=== PATIENT | female | born 1970 | race African-American/Black ===

== ENCOUNTER 2024-05-16 14:45 | Emergency (ER) | payer OTHER, SELFPAY ==
[2024-05-16 14:50] VITALS: BP 112/73
[2024-05-16 15:19] LABS: % Basophils 0.6 % (0-2); % Eosinophils 1.1 % (0-6); % Immature Granulocytes 0.2 % (0-0.5); % Lymphocytes 37.4 % (20.5-51.1); % Monocytes 8.1 % (1.7-9.3); % Neutrophils 52.6 % (42.2-75.2); Absolute Eosinophils 0.1 10^3/uL (0-0.7); Absolute Lymphocytes 1.8 10^3/uL (1.2-3.4); Absolute Monocytes 0.4 10^3/uL (0.1-0.6); Absolute Neutrophils 2.5 10^3/uL (1.4-6.5); Hematocrit 33.8 % (37.0-47.0); Hemoglobin 11.4 g/dL (12.0-16.0); Mean Corp Hgb Conc. 33.7 g/dL (33.0-37.0); Mean Corpuscular Hgb 28.4 pg (27.0-31.0); Mean Corpuscular Volume 84.1 fL (81.0-99.0); Mean Platelet Volume 9.7 fL (7.4-10.4); Nucleated Red Blood Cells % 0 %; Platelet Count 253 10^3/uL (130-400); Red Blood Cell Count 4.02 10^6/uL (4.20-5.40); Red Cell Dist. Width 13.8 % (11.5-14.5); White Blood Cell Count 4.7 10^3/uL (4.8-10.8)
[2024-05-16 15:31] LABS: INR 1.11; PT 14.1 Sec (11.4-14.6)
[2024-05-16 15:40] LABS: ALT (SGPT) 26 U/L (0-35); AST (SGOT) 30 U/L (14-36); Albumin 4.5 g/dl (3.5-5.0); Alkaline Phosphatase 71 U/L (38-126); Blood Urea Nitrogen 14 mg/dl (7-17); Calcium 9.2 mg/dl (8.4-10.2); Carbon Dioxide 20 mmol/L (22-30); Chloride 106 mmol/L (98-107); Glucose 92 mg/dl (70-99); Potassium 3.7 mmol/L (3.5-5.1); Sodium 141 mmol/L (135-145); Total Bilirubin 0.2 mg/dl (0.2-1.3); Total Protein 6.9 g/dl (6.3-8.2); eGFR > 60.00
[2024-05-16 16:56] VITALS: BP 118/67
[2024-05-16 17:00] VITALS: BP 106/68
[2024-05-16 18:00] VITALS: BP 115/76
--- NOTE | 2024-05-16 18:51 | ED.GENMED ---
History of Present Illness
General
Chief Complaint: Fatigue
Time Seen by Provider: 05/16/24 18:51
History of Present Illness
History of Present Illness:
TIME OF INITIAL ENCOUNTER: 6:55 PM
HPI: Patient states that her hemoglobin had been around 12 and then dropped to 10 as an outpatient. This is associated with vaginal bleeding and some blood in the stool. She reportedly was told to have a blood transfusion by her primary care
doctor. She has had a colonoscopy a few years ago and is due for another one coming up shortly as she does have a family history of colon cancer. She had a life-threatening episode of vaginal bleeding in 2019 when her hemoglobin is 3.4 and it was
suggested that she should have a hysterectomy however due to 'islam reasons' she did not.
EXAM:
GENERAL: Well appearing in no distress
HEENT: Moist oral mucosa
CARDIOVASCULAR: No murmurs, normal heart rate, regular rhythm, No chest wall tenderness
PULMONARY: No respiratory distress, breath sounds are clear and equal
ABDOMEN: Soft with no peritoneal signs, no tenderness, empty rectal vault, no gross blood, what was tested was heme-negative
NEUROLOGIC: Excellent strength all extremities, no coordination deficits
PSYCHIATRIC: Appropriate mental status, normal insight and judgement
EXTREMITIES: Nontender, no edema, moves all extremities equally
SKIN: No rash, no lesions
NUMBER AND COMPLEXITY OF PROBLEMS ADDRESSED AT THE ENCOUNTER
� Chronic conditions affecting care: COPD, diabetes, iron deficiency anemia, anxiety/depression
� Acute Exacerbation and/or Progression of Chronic Illness: This is an acute problem
� Differential Diagnosis includes: Iron deficiency anemia, mild anemia from vaginal or GI bleeding
AMOUNT AND/OR COMPLEXITY OF DATA TO BE REVIEWED AND ANALYZED
� I performed an independent evaluation of and my interpretation is:
EKG:
CT:
X-rays:
Laboratory Studies: White count 4.7, hemoglobin 11.4, platelets normal, chemistries unremarkable except bicarb of 20, O+ blood type
Other:
� Review of other/old records: In 2019 she had a hemoglobin of 3.4
� Clinical information was obtained by an independent historian: None needed
� Prescriptions/Medications Considered but not given:
� Further testing considered but not performed:
RISK OF COMPLICATIONS AND/OR MORBIDITY OR MORTALITY OF PATIENT MANAGEMENT
� Social determinants of health affecting care: Lives at home
� Discussion with other providers:
� Escalation of care including admission/observation vs risk of discharge considered: Blood work was obtained before the start of my shift. The patient has very little evaluation vital signs and hemoglobin are stable. Recommend
continued outpatient management she is encouraged to return here if worse. She denies being on any antiplatelets or anticoagulation states she only takes amlodipine.
ANY OTHER UPDATES:
Past History
Past History
ED Past Medical History: None and Other (Fibroids)
ED Past Surgical History: Other (Fibroid removal)
Social History
Tobacco: Non-smoker
Alcohol: None
Phy Exam
Physical Exam
Physical Exam:
See HPI
Course
Orders/Labs/Results
Orders:
Orders
05/16/24 15:11
Type+Screen Urgent
Complete Blood Count/With Diff Urgent
Comprehensive Metabolic Panel Urgent
Prothrombin Time Urgent
Abnormal Lab Results
05/16/24
15:11
WBC 4.7 L 10^3/uL
(4.8-10.8)
RBC 4.02 L 10^6/uL
(4.20-5.40)
Hgb 11.4 L g/dL
(12.0-16.0)
Hct 33.8 L %
(37.0-47.0)
Carbon Dioxide 20 L mmol/L
(22-30)
05/16/24 15:11
05/16/24 15:11
Vital Signs
Initial and Last Documented VS:
Initial Vital Signs
Temp Pulse Resp BP Pulse Ox
99.5 F 73 16 112/73 98
05/16/24 14:50 05/16/24 14:50 05/16/24 14:50 05/16/24 14:50 05/16/24 14:50
Last Documented Vital Signs
Temp Pulse Resp BP Pulse Ox
99.5 F 55 20 115/76 98
05/16/24 14:50 05/16/24 18:45 05/16/24 18:45 05/16/24 18:00 05/16/24 18:45
*Critical Care Note
Total Time (30-74mins, 75-104mins- exclusive of procedures): Not Applicable
ED Attending Note
-
Portions of this chart may have been created with voice recognition software.� Occasional wrong word or��sound alike� substitutions may have occurred due to the inherent limitations of voice recognition software.
Discharge Plan
Departure
Patient Disposition: Home (Routine Discharge)
Date of Disposition: 05/16/24
Time of Disposition: 19:03
Patient with high blood pressure during this ER visit?: Yes
Discharge Problem:
Anemia
Prescriptions:
No Action
Collagenase
1 tab PO DAILY
Ibuprofen
1 tab PO PRN PRN (Reason: pain)
Iron
1 tab PO DAILY
Vitamin B-12
1 tab PO DAILY
Vitamin C
1 tab PO DAILY
cyclobenzaprine 10 MG tablet
10 mg PO HSPRN PRN (Reason: muscle tightness/spasm) Qty: 7 0RF
methylprednisolone [Medrol (Rahat)] 4 MG tablets,dose pack
4 tab PO . DIRECT Qty: 1 0RF
Referrals:
Jerry Hayden MD [Family Provider] -
Activity Restrictions/Additional Instructions:
Your hemoglobin today is 11.4. This appears to be stable based on your reported recent readings. Other blood work is unremarkable. The stool test shows no sign of microscopic blood. I do recommend that you follow-up with Dr. Cottrell and have
your ultrasound and colonoscopy as outpatient. Return here if worse or other concerns.
Interventions
Interventions:
*Risk Screen - Suicide Last Done: 05/16/24 14:50
*General Assessment Last Done: 05/16/24 14:50
*Neglect/Abuse Screening Last Done: 05/16/24 14:50
ED- Fall Risk Assessment Last Done: 05/16/24 16:49
*ED COVID-19 Vaccine History Last Done: 05/16/24 16:49
*Nursing Disposition Last Done: 05/16/24 19:08
Discharge Date and Time
Print Language: CHILEAN
[2024-05-16 19:00] VITALS: BP 108/73
== END 2024-05-16 19:10 | disposition home or self-care (01) ==
LOC: EMR 14:45
PROVIDERS: Student in an Organized Health Care Education/Training Program; EMERGENCY PHYSICIAN Emergency Medicine; FAMILY PHYSICIAN Family Medicine
DX: D64.9 Anemia, unspecified (principal); R03.0 Elevated blood-pressure reading, without diagnosis of hypertension
CPT/HCPCS: 99283; 80053; 85025; 85610; 86850; 86900; 86901

== ENCOUNTER → 2024-05-22 13:28 | Outpatient (REF) | payer OTHER, SELFPAY | LOC: WDC 13:28 | PROVIDERS: ATTENDING PHYSICIAN Obstetrics & Gynecology; FAMILY PHYSICIAN Family Medicine | DX: Z12.31 Encounter for screening mammogram for malignant neoplasm of breast (principal) | CPT/HCPCS: 77063; 77067 ==

== ENCOUNTER → 2024-06-09 16:20 | Outpatient (REF) | payer OTHER, SELFPAY | LOC: RAD 16:20 | PROVIDERS: ATTENDING PHYSICIAN Obstetrics & Gynecology; FAMILY PHYSICIAN Family Medicine | DX: D25.9 Leiomyoma of uterus, unspecified (principal) | CPT/HCPCS: 76830; 76856 ==

== ENCOUNTER 2024-09-06 06:37 | Day surgery (SDC) | payer OTHER, SELFPAY ==
[2024-09-06 11:56] VITALS: BMI 25.8
[2024-09-06 11:57] VITALS: BMI 25.8
[2024-09-06 12:00] VITALS: BP 128/80
[2024-09-06] MEDS: NEURONTIN 300 MG PO (12:01)
[2024-09-06] MEDS: TYLENOL 1000 MG PO (12:01)
[2024-09-06] MEDS: NORMOSOL-R/PLASMALYTE-A 1000 IV (12:02)
[2024-09-06 13:00] VITALS: BP 128/80; BP 99/68
--- NOTE | 2024-09-06 13:04 | W.IMMPOSTOP ---
Surgical Immed Post Op Note
-
Primary Surgeon: Jerri Cottrell DO
Assisting Surgeon: n/a
Pre-op Diagnosis: Abnormal uterine bleeding; fibroid uterus
Post-op Diagnosis: same, submucosal fibroids
Procedure Performed: hysteroscopy D&C
Anesthesia Type: MAC IV sedation
Specimen / Cultures: 1. endocervical curettings 2. endometrial curettings
Estimated Blood Loss: 5ml
Complications: none
Operative Findings: Uterus enlarged with fibroids, approx 12 wk size. Uterus with irregular contour including right sided mass/fibroid palpated, approximately 5-6cm in size.
Hysteroscopic findings: Submucosal fibroids noted (2), one is filling large portion of endometrial cavity. Bilateral tubal ostia seen.
Fluid deficit: 190ml
Counts correct times 2.
Stable to recovery.
[2024-09-06 13:15] VITALS: BP 115/78
[2024-09-06 13:25] VITALS: BP 116/80
[2024-09-06 13:40] VITALS: BP 134/95
[2024-09-06 13:55] VITALS: BP 156/93
[2024-09-06] MEDS: MOTRIN 600 MG PO (15:01)
== END 2024-09-06 15:03 | disposition home or self-care (01) ==
LOC: SDS 06:37
PROVIDERS: ATTENDING PHYSICIAN Obstetrics & Gynecology; FAMILY PHYSICIAN Family Medicine
DX: D25.2 Subserosal leiomyoma of uterus (principal); N93.9 Abnormal uterine and vaginal bleeding, unspecified
CPT/HCPCS: 58558; 88305; 36415; 80048; 84702; 85025; 86850; 86900; 86901

== ENCOUNTER 2024-09-29 06:10 | Day surgery (SDC) | payer OTHER, SELFPAY ==
[2024-09-04 13:53] VITALS: BMI 22.4
[2024-09-04 14:01] LABS: % Basophils 0.7 % (0-2); % Eosinophils 0.5 % (0-6); % Immature Granulocytes 0.5 % (0-0.5); % Lymphocytes 33.2 % (20.5-51.1); % Monocytes 8.4 % (1.7-9.3); % Neutrophils 56.7 % (42.2-75.2); Absolute Lymphocytes 1.5 10^3/uL (1.2-3.4); Absolute Monocytes 0.4 10^3/uL (0.1-0.6); Absolute Neutrophils 2.5 10^3/uL (1.4-6.5); Hematocrit 38.4 % (37.0-47.0); Hemoglobin 12.3 g/dL (12.0-16.0); Mean Corpuscular Hgb 28.3 pg (27.0-31.0); Mean Corpuscular Volume 88.3 fL (81.0-99.0); Mean Platelet Volume 9.9 fL (7.4-10.4); Nucleated Red Blood Cells % 0 %; Platelet Count 245 10^3/uL (130-400); Red Blood Cell Count 4.35 10^6/uL (4.20-5.40); White Blood Cell Count 4.4 10^3/uL (4.8-10.8)
[2024-09-04 14:54] LABS: Blood Urea Nitrogen 11 mg/dl (7-17); Calcium 9.7 mg/dl (8.4-10.2); Carbon Dioxide 24 mmol/L (22-30); Chloride 104 mmol/L (98-107); Glucose 74 mg/dl (70-99); Potassium 4.1 mmol/L (3.5-5.1); Sodium 137 mmol/L (135-145); eGFR > 60.00
[2024-09-04 15:11] LABS: Beta HCG Quantitative < 2.39 mIU/ml
--- NOTE | 2024-09-06 13:04 | W.IMMPOSTOP ---
Surgical Immed Post Op Note
-
Primary Surgeon: Jerri Cottrell DO
Assisting Surgeon: n/a
Pre-op Diagnosis: Abnormal uterine bleeding; fibroid uterus
Post-op Diagnosis: same, submucosal fibroids
Procedure Performed: hysteroscopy D&C
Anesthesia Type: MAC IV sedation
Specimen / Cultures: 1. endocervical curettings 2. endometrial curettings
Estimated Blood Loss: 5ml
Complications: none
Operative Findings: Uterus enlarged with fibroids, approx 12 wk size. Submucosal fibroids noted (2), one is filling large portion of endometrial cavity. Bilateral tubal ostia seen.
Fluid deficit: 190ml
Counts correct times 2.
Stable to recovery.
[2024-09-29] VITALS (12 sets, daily range): BP systolic 113–142; BP diastolic 70–84; BMI 22.4
[2024-09-29] MEDS: NEURONTIN 300 MG PO (08:58)
[2024-09-29] MEDS: TYLENOL 1000 MG PO (08:58)
[2024-09-29] MEDS: NORMOSOL-R/PLASMALYTE-A 1000 IV (08:59)
[2024-09-29] MEDS: ZOFRAN 4 MG IV (12:46)
--- NOTE | 2024-09-29 12:47 | W.IMMPOSTOP ---
Surgical Immed Post Op Note
-
Primary Surgeon: Jerri Cottrell DO
Assistants: NKII Sinclair, NIKI Nj
Pre-op Diagnosis: Persistent abnormal uterine bleeding, enlarged fibroid uterus, failed medical therapy
Post-op Diagnosis: same
Procedure Performed: Robotic total laparoscopic hysterectomy, bilateral salpingo-oopherectomy, lysis adhesions
Anesthesia Type: general ET, Dr. Cardenas
Specimen / Cultures: uterus, cervix, bilateral tubes and ovaries
Estimated Blood Loss: 5mL
Complications: none
Rich clear yellow urine 600mL
Operative Findings: Enlarged uterus with approx. 5.5 cm exophytic right posterior fundal fibroid on a stalk. Multiple fibroids in uterus. Normal appearing tubes and ovaries.
Filmy adhesions tenting up sigmoid colon to left pelvic peritoneum in vicinity of the left IP ligament and left adnexa. These were lysed.
Cell Saver was available for this procedure but was not needed due to minimal blood loss.
Counts correct times 2.
Stable to recovery.
[2024-09-29] MEDS: DILAUDID 0.25 MG IV ×2 (12:48→12:58)
[2024-09-29] MEDS: TORADOL 30 MG IV (13:15)
[2024-09-29] MEDS: TYLENOL 650 MG PO (15:55)
[2024-09-29] MEDS: ROXICODONE 5 MG PO (16:16)
== END 2024-09-29 16:30 | disposition home or self-care (01) ==
LOC: SDS 06:10
PROVIDERS: ATTENDING PHYSICIAN Obstetrics & Gynecology; FAMILY PHYSICIAN Family Medicine
DX: D25.0 Submucous leiomyoma of uterus (principal); N93.8 Other specified abnormal uterine and vaginal bleeding; N80.03 Adenomyosis of the uterus; N87.9 Dysplasia of cervix uteri, unspecified
CPT/HCPCS: 58571; 88307; 88311; 36415; 80048; 84702; 85025; 86850; 86900; 86901; 86920

== ENCOUNTER 2025-02-06 06:31 | Day surgery (SDC) | payer OTHER, SELFPAY | END 2025-02-06 09:22 | disposition home or self-care (01) | LOC: GI 06:31 | PROVIDERS: ATTENDING PHYSICIAN Specialist | DX: K64.8 Other hemorrhoids (principal); Z80.0 Family history of malignant neoplasm of digestive organs | CPT/HCPCS: 45378 ==

== ENCOUNTER → 2025-05-23 14:10 | Outpatient (REF) | payer OTHER, SELFPAY | LOC: WDC 14:10 | PROVIDERS: ATTENDING PHYSICIAN Advanced Practice Midwife; FAMILY PHYSICIAN Family Medicine | DX: Z12.31 Encounter for screening mammogram for malignant neoplasm of breast (principal) | CPT/HCPCS: 77063; 77067 ==